=== PATIENT | male | born 1960 | race Caucasian/White ===

== ENCOUNTER → 2016-11-10 | Outpatient (CLI) | payer OTHER ==
[~2016-11-10] MED LIST: ALBUAER19 INH; BUPR-79 PO; BUSP30TA2 PO; CLON0.5T3 PO; CRS/10 PO; DICY10CA55 PO; ESCI10TA17 PO; FLVHFA110 INH; LANS15CA15 PO; OXYC1TAB3 PO
--- NOTE | 2016-11-10 14:20 | DIAGNOSTIC IMAGING REPORT ---
KUB CLINICAL HISTORY: Right UVJ calculus COMPARISON STUDY: 05/25/2016 FINDINGS: There is no pathologic bowel dilatation. No calculi are visualized on conventional radiographic evaluation. IMPRESSION: No calculi identified on conventional radiographic imaging Electronically signed by: Lj Noonan M.D. 11/10/2016 2:18 PM Dictated Date/Time: 11/10/2016 2:17 PM
== END | disposition home or self-care (01) ==
LOC: C.RADBC 13:37
PROVIDERS: ATTEND Urology
DX: Z87.440 Personal history of urinary (tract) infections (principal)

== ENCOUNTER → 2017-07-13 | Outpatient (CLI) | payer OTHER ==
[~2017-07-13] MED LIST changes: -OXYC1TAB3 PO
--- NOTE | 2017-07-13 10:34 | DIAGNOSTIC IMAGING REPORT ---
KUB CLINICAL HISTORY: N20.0 Calculus of [id number] History of UTIN40.0 BPH COMPARISON STUDY: 11/10/2016 FINDINGS: The renal shadows are partially obscured by overlying bowel gas and fecal material. There is no pathologic bowel dilatation. There are no calcification suspicious for renal calculi. A 4 mm opacity located medial to the right kidney at the L1-2 level appears too superior to represent a proximal ureteral calculus. There are postsurgical changes within the pelvis with a surgical anastomotic suture line. IMPRESSION: 1. No calculi identified on conventional radiographic imaging 2. No evidence of pathologic bowel dilatation. Electronically signed by: Lj Noonan M.D. 07/13/2017 10:33 AM Dictated Date/Time: 07/13/2017 10:32 AM
[2017-07-13 14:06] LABS: BLOOD UREA NITROGEN 15 mg/dl (7-18); BUN/CREATININE RATIO 14.1 (10-20)
== END | disposition home or self-care (01) ==
LOC: C.RADBC 10:06
PROVIDERS: ATTEND Urology
DX: N40.0 Benign prostatic hyperplasia without lower urinary tract symptoms (principal); N20.0 Calculus of kidney; Z87.440 Personal history of urinary (tract) infections